=== PATIENT | male | born 1970 | race Caucasian/White ===

== ENCOUNTER 2023-10-08 03:01 | Inpatient (IN) | payer BC, SELFPAY ==
[2023-10-08] VITALS (72 sets, daily range): BP systolic 111–169; BP diastolic 63–108; BMI 31.8; BMI 31.5
--- NOTE | 2023-10-08 02:09 | ED.CVA ---
History of Present Illness
General
Chief Complaint: CVA/TIA Symptoms
Source: patient and ambulance crew
Time Seen by Provider: 10/08/23 01:47
Onset of Stroke Symptoms
Onset of symptoms known: No
Time pt last seen normal is known: Yes
Date last time pt seen normal: 10/07/23
History of Present Illness
History of Present Illness:
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 Patient states he had dinner and went to bed around 1030 feeling
normal. He awoke at 1245 with numbness to the right face and noticed his speech was abnormal. He also noticed that he could not use his right upper extremity. He is right-handed. He is also a diabetic. Patient states he knew he was having a
stroke. He does have a history of bilateral carotid endarterectomy in the past. EMS found him to have flaccid right upper extremity as well as dysarthria. Patient reports no lower extremity symptoms. He is tearful on exam. The patient is
right-handed
Past History
Past History
ED Past Medical History: CVA, HTN, Hypercholesterolemia, NIDDM and Other (Spinocerebellar ataxia type , carotid vascular disease)
Phy Exam
Physical Exam
Physical Exam:
CONSTITUTIONAL Patient alert and oriented to person, place and time. Vital signs reviewed.
HEAD atraumatic, normocephalic.
EYES eyelids normal to inspection, Pupils equally round and reactive to light, Extraocular muscles intact, Conjunctiva normal, Sclera normal.
NECK normal range of motion, Trachea midline, no jugular venous distention.
RESPIRATORY CHEST No respiratory distress noted, Chest expansion equal, Bilateral breath sounds clear.
CARDIOVASCULAR regular rate and rhythm, Heart sounds normal.
UPPER EXTREMITY no cyanosis, no edema.
LOWER EXTREMITY range of motion normal, Motor strength normal, no cyanosis, no edema.
NEURO moderate to severe dysarthria noted, no aphasia, flaccid right upper extremity, cranial nerves intact. No changes to lower extremity strength. Left upper extremity has no ataxia. No noted visual field deficits
SKIN skin warm, dry, and normal in color.
PSYCHIATRIC patient oriented to person place and time, Normal affect.
Scores
NIH Stroke Score
Level of Consciousness: 0 - Alert
LOC Questions: 0-Answers both correctly
LOC Commands: 0-Performs both correctly
Best Horizontal Gaze: 0-Normal
Visual Pandey: 0=Normal, no visual loss
Facial Palsy: 0=Normal, symmetrical
Motor - Right Arm: 3=None vs. gravity
Motor - Left Arm: 0=No drift 10 seconds
Motor - Right Le-No drift 5 seconds
Motor - Left Le-No drift 5 seconds
Limb Ataxia: 0-Absent
Sensation: 1-Mild loss
Best Language: 0-No aphasia
Dysarthria: 2-Severe slurring
Extinction and Inattention: 0-No abnormality
Total Score:: 6
Course
Orders/Labs/Results
Orders:
Orders
10/08/23 01:39
CT Head W/o Cont STROKE ALERT Urgent
Comment:
Reason For Exam: R/O STROKE
10/08/23 01:41
Electrocardiogram (*1) Urgent
Reason for Study: Other
Other Reason for Exam: Possible Stroke
Bedside Glucose- Treatment ONCE
Cardiac Monitoring- Treatment ONCE
EKG- Treatment ONCE
IV Insert/Care/Rem.- Treatment PRN
Vital Signs As Directed
Frequency: Other
Weight As Directed
Frequency: Once
Comment: ZERO STRETCHER SCALE FOR ACCURATE WEIGHT
10/08/23 01:43
CT Head/Neck Ang STROKE ALERT Urgent
Comment:
Reason For Exam: R/O STROKE
10/08/23 02:00
Complete Blood Count/With Diff Urgent
Comprehensive Metabolic Panel Urgent
PTT Urgent
Prothrombin Time Urgent
Troponin I Urgent
10/08/23 02:13
Tenecteplase [Tnkase] 25 mg Syringe [Syringe Non-Pump] 0 ml IV NOW
Provider explained risk/benefits to patient &/or caregiver?: Yes
10/08/23 02:29
Admit/Transfer Patient As Directed
Co-Sign Provider:
Level of Care: Inpatient admission
Assign to:: ICU
Physician / Group: jessie
Diagnosis: acute Lt sided CVA with Rt sided UEx flaccid paralysis
Reason for Hospitalization: acute Lt sided CVA with Rt sided UEx flaccid paralysis s/p TNK
Expected length of stay greater than two midnights?: Yes
ELOS- Estimated Length of Stay in days: 5
I certify the patient meets the requirements for IP care: Yes
10/08/23 02:31
Code Status As Directed
Resuscitation Status: Full Code
10/08/23 03:04
Acetaminophen [Tylenol/Feverall] 650 mg RECTAL Q4HPRN PRN
Acetaminophen [Tylenol] 650 mg PO Q4HPRN PRN
Dextrose 50%-Water [Dextrose 50% Syringe] 12.5 grams IV [id number] PRN
Glucagon [GlucaGen] 1 mg IM PRN PRN
10/08/23 03:04
Case Management Consult ONCE
Case Management Consult: Discharge Planning
Comment: stroke/tia
DIETARY CONSULT Routine
Reason for Consult: stroke/TIA
NEUROLOGY CONSULT Urgent
Consulting Provider: Nina Jensen
Was physician already notified: Yes
Reason for consult: acute Lt sided CVA with Rt sided UEx flaccid paralysis
Extrusion Die Template Maker Urgent
Activity As Directed
Activity Level: With Assistance
Bedside Glucose Monitoring As Directed
Frequency: AC&HS
Additional Instructions:: Change to q6h if pt on TPN, tube feeding or not eating
NIH Stroke Scale As Directed
Directions: Per protocol
Comment: every shift and with any change in condition or mental status
Neurological Checks As Directed
Frequency: q4h
Additional Instructions:: q4h x 24h upon admission to the floor, then qshift & with any change in condition
and mental status
Patient Education As Directed
Type: Stroke education packet
Comment: provide to patient and family
Pneumatic Compression Sleeves As Directed
Type: Knee high
Swallow Screening CVA/TIA ONLY As Directed
Comment: NPO until swallowing screening completed
If patient FAILS swallow screening:: NPO, Speech Therapy consult, Aspiration Precautions
If patient PASSES swallow screening, diet:: Cholesterol Lowering
1800 fátima/ 15 CHO Diabetic
Vital Signs As Directed
Frequency: Per unit guidelines
Ot Eval And Treat Routine
Pt Eval And Treat Routine
Activity Level: As Tolerated
Speech Therapy Eval & Treat Routine
DX Deep Vein Thrombosis Video Routine
10/08/23 04:01
Cardiovascular Evaluation IN AM
Complete Blood Count/No Diff IN AM
Comprehensive Metabolic Panel Routine
Glycohemoglobin (HgbA1c) IN AM
10/08/23 07:30
Insulin Aspart Corrective Low [Novolog Flexpen-Low Resistance] See Protocol SC AC
Abnormal Lab Results
10/08/23 10/08/23 10/08/23
02:00 02:03 03:00
Absolute Monos (auto) 0.7 H 10^3/uL
(0.1-0.6)
Chloride 109 H mmol/L
(98-107)
Carbon Dioxide 20 L mmol/L
(22-30)
BUN 25 H mg/dl
(9-20)
Glucose 134 H mg/dl
(70-99)
Total Protein 6.2 L g/dl
(6.3-8.2)
POC Glucose 135 H mg/dl 148 H mg/dl
(70-99) (70-99)
10/08/23 02:00
10/08/23 02:00
Vital Signs
Initial and Last Documented VS:
Initial Vital Signs
Pulse Resp Pulse Ox
95 34 97
10/08/23 01:58 10/08/23 01:58 10/08/23 01:58
Last Documented Vital Signs
Temp Pulse Resp BP Pulse Ox
98.7 F 64 17 119/70 94
10/08/23 02:05 10/08/23 06:22 10/08/23 06:22 10/08/23 06:22 10/08/23 03:30
MDM/Problems Addressed
MDM/Problems Addressed:
Acute CVA, hypertension
*Radiology
Radiology exam reviewed: preliminary read by ED provider (No obvious intracranial hemorrhage) and radiology read reviewed
*Pulse Oximetry
Patient hypoxic: no
*EKG
Interpreted by ED Provider?: Yes
Interpretation: normal
Rate: normal
Rhythm: sinus
[place]: normal axis
QRS Pattern: normal QRS
Ischemia: no ischemia
*Industrial Gas Fitter Interpretation
Rate: normal
Interpretation: normal
Rhythm: sinus
*Critical Care Note
Total Time (30-74mins, 75-104mins- exclusive of procedures): 40 minutes
Data Reviewed
Source: patient and ambulance crew
Patient Management
Discussion with other providers: Video Producer (Case discussed with neurology)
Escalation/DeEscalation of care consider admission/obs:
52-year-old male presents acutely with stroke. Went to bed at 1030 and woke up around 12:45 AM. Patient with no obvious contraindications to TNK. Patient presents with relatively profound dysarthria as well as flaccid right upper extremity. Case
discussed with neurology recommends TNK. Noncontrast CT negative. Await CTA to look for LVO. Continue to monitor closely. Risks and benefit were discussed in detail with the patient regarding TNK. Patient agrees that he feels that the possible
benefits outweigh the risks and would like to proceed.
ED Attending Note
-
Portions of this chart may have been created with voice recognition software.� Occasional wrong word or��sound alike� substitutions may have occurred due to the inherent limitations of voice recognition software.
Discharge Plan
Departure
Patient Disposition: Admit
Date of Disposition: 10/08/23
Time of Disposition: 02:09
Admit to: ICU
Presentation/result/management discussed w/ accepting MD/DO: Hospitalist
Discharge Problem:
Acute cerebrovascular accident (CVA)
Interventions
Interventions:
*Risk Screen - Suicide Last Done: 10/08/23 02:05
*General Assessment Last Done: 10/08/23 02:05
*Neglect/Abuse Screening Last Done: 10/08/23 02:05
ED- Fall Risk Assessment Last Done: 10/08/23 02:41
*ED COVID-19 Vaccine History Last Done: 10/08/23 02:14
*Nursing Disposition Last Done: 10/08/23 02:41
ED- Pulmonary Assessment Last Done: 10/08/23 02:14
ED- Neurological Assessment Last Done: 10/08/23 02:14
ED- Cardiac Assessment Last Done: 10/08/23 02:14
ED Swallowing Screen Last Done: 10/08/23 02:14
Discharge Date and Time
Discharge Date/Time: 10/08/23 02:42
[2023-10-08 02:10] LABS: Glucose - Point of Care 135 mg/dl (70-99)
[2023-10-08 02:12] LABS: % Basophils 0.7 % (0-2); % Immature Granulocytes 0.2 % (0-0.5); % Lymphocytes 27.8 % (20.5-51.1); % Monocytes 8.3 % (1.7-9.3); Absolute Basophils 0.1 10^3/uL (0-0.2); Absolute Eosinophils 0.3 10^3/uL (0-0.7); Absolute Lymphocytes 2.3 10^3/uL (1.2-3.4); Absolute Monocytes 0.7 10^3/uL (0.1-0.6); Absolute Neutrophils 4.8 10^3/uL (1.4-6.5); Hematocrit 40.3 % (39.0-52.0); Hemoglobin 14.5 g/dL (13.0-18.0); Mean Corpuscular Hgb 30.5 pg (27.0-31.0); Mean Corpuscular Volume 84.7 fL (80.0-94.0); Mean Platelet Volume 10.1 fL (7.4-10.4); Nucleated Red Blood Cells % 0 % (-); Platelet Count 269 10^3/uL (130-400); Red Blood Cell Count 4.76 10^6/uL (4.70-6.10); Red Cell Dist. Width 13.2 % (11.5-14.5); White Blood Cell Count 8.2 10^3/uL (4.8-10.8)
[2023-10-08 02:18] LABS: INR 1.11; PT 14.2 Sec (11.4-14.6)
[2023-10-08 02:19] LABS: APTT 30.6 Sec (23.4-35.0)
[2023-10-08] MEDS: TNKASE 5 MG IV (02:21)
[2023-10-08 02:29] LABS: ALT (SGPT) 37 U/L (0-50); AST (SGOT) 29 U/L (17-59); Albumin 3.8 g/dl (3.5-5.0); Alkaline Phosphatase 59 U/L (38-126); Blood Urea Nitrogen 25 mg/dl (9-20); Calcium 9.5 mg/dl (8.4-10.2); Carbon Dioxide 20 mmol/L (22-30); Chloride 109 mmol/L (98-107); Estimated Creatinine Clearance 93 ml/min; Glucose 134 mg/dl (70-99); Potassium 3.9 mmol/L (3.5-5.1); Sodium 137 mmol/L (135-145); Total Bilirubin 0.5 mg/dl (0.2-1.3); Total Protein 6.2 g/dl (6.3-8.2); eGFR > 60.00
[2023-10-08 02:32] LABS: Troponin I 0.019 ng/ml
--- NOTE | 2023-10-08 02:48 | HPS.HSE ---
Family Physician
-
Family Physician: INTERVIEWE UNKNOWN - PT NOT
Chief Complaint
-
stroke alert
History of Present Illness
HPI
52 R handed Diabetic M , [facility] EMS , HX CVA, FENG, bilateral carotid endarterectomy , HX spinocerebellar ataxia type seen at ER s/p TNK and evaalaution of acute CVA
- went to bed at 1030pm feeling normal
- awoke at 1245 with numbness to the right face and noticed his speech was slurred
- noted unable to move his Rt UEx
EMS:
EMS found him to have flaccid right upper extremity as well as dysarthria.
Patient reports no lower extremity symptoms.
Medical History
Past Medical History
Past Medical History: Reports Other
Additional Past Medical History:
Spinocerebellar ataxia type
stroke
carotid vascular disease
CVA
HTN
Hypercholesterolemia
Past Surgical History: Reports Other (bilateral carotid endarterectomy)
Social History
Tobacco: Non-smoker
Alcohol: None
Drug: None
Personal:
Living: With Family
Family History
Family History: Not pertinent
Allergies / Home Medications
Allergies reflects when Allergies were last updated in [facility].
Home Medications with original date entered in [facility]
Allergy/Medication List:
Allergies
Allergy/AdvReac Type Severity Reaction Status Date / Time
latex Allergy Unknown Verified 10/08/23 02:11
Home Medications
Fish Oil 10/08/23
Lantus Solostar U-100 Insulin 30 unit SC DAILY 10/08/23
Mounjaro 10/08/23
aspirin 10/08/23
diltiazem HCl 10/08/23
labetalol 10/08/23
metformin 10/08/23
montelukast 10/08/23
rosuvastatin 10/08/23
Review of Systems
-
Constitutional: Reports No Symptoms
EENT: Reports No Symptoms
Respiratory: Reports No Symptoms
Cardiac: Reports No Symptoms
Abdomen/GI: Reports No Symptoms
: Reports No Symptoms
Musculoskeletal: Reports No Symptoms
Skin: Reports No Symptoms
Neurological: Reports See HPI and Weakness (Rt UEx weakness )
Endocrine: Reports No Symptoms
Hematologic/Lymphatic: Reports No Symptoms
Psych: Reports No Symptoms
Physical Exam
Vital Signs
Vital Signs
Temp Pulse Resp BP Pulse Ox
98.7 F 82 17 159/84 94
10/08/23 02:05 10/08/23 02:35 10/08/23 02:35 10/08/23 02:35 10/08/23 02:35
Physical Exam
General: Well Developed and Conversant (slurred speech , not dysphasic )
HEENT: NormoCephalic, Anicteric, Moist mucous membranes and Atraumatic
Respiratory: Clear
Cardiac: S1/S2 and Regular Rhythm
Breast: Deferred by me
GI: Soft, Non Tender, Non Distended and Normal Bowel Sounds
Rectal: Deferred by Provider
Genito-urinary: Deferred by me
Musculoskeletal: No Edema
Skin: Warm and Dry
Neuro: Awake, Alert, AO x 3, Nonfocal/grossly intact (see NIHSS ) and Other
Psych: Calm
Laboratory Results
-
10/08/23 02:00
10/08/23 02:00
Laboratory Results
PT 14.2 Sec (11.4-14.6) 10/08/23 02:00
INR 1.11 10/08/23 02:00
APTT 30.6 Sec (23.4-35.0) 10/08/23 02:00
Total Bilirubin 0.5 mg/dl (0.2-1.3) 10/08/23 02:00
AST 29 U/L (17-59) 10/08/23 02:00
ALT 37 U/L (0-50) 10/08/23 02:00
Alkaline Phosphatase 59 U/L (38-126) 10/08/23 02:00
Troponin I 0.019 ng/ml 10/08/23 02:00
Data Reviewed
-
CT Scan: Report Reviewed by me
Medical Tests (Nuc Med, Echo, EKG etc): Report Reviewed by me
Lab Data: Labs Reviewed by me
Old Records: Reviewed
Impression/Plan
-
Reviewed VS: BP 170/90 HR 80
PE
NIH Stroke Score
Level of Consciousness: 0 - Alert
LOC Questions: 0-Answers both correctly
LOC Commands: 0-Performs both correctly
Best Horizontal Gaze: 0-Normal
Visual Pandey: 0=Normal, no visual loss
Facial Palsy: 0=Normal, symmetrical
Motor - Right Arm: 3=None vs. gravity
Motor - Left Arm: 0=No drift 10 seconds
Motor - Right Le-No drift 5 seconds
Motor - Left Le-No drift 5 seconds
Limb Ataxia: 0-Absent
Sensation: 1-Mild loss
Best Language: 0-No aphasia
Dysarthria: 2-Severe slurring
Extinction and Inattention: 0-No abnormality
Total Score:: 6
Data
Unremarkable CBC
Pending CMP
HCT
No acute process
H & N CTA: per ER att, no LVO
EKG
NORMAL SINUS RHYTHM
NORMAL ECG
NO PREVIOUS ECGS AVAILABLE
NO PRIOR DH and hospitalist admission:
ASSESSMENT & PLAN
Pending Rx reconciliation
Acute Lt MCA region CVA with dysarthria, Rt UEx flaccid paralysis, Rt face parasthesis
TNK candidate without contraindication
- HX CVA
- HX CVA, FENG, bilateral carotid endarterectomy
- NEG Noncontrast HCT
- Prelim NEG H & N CTA for for LVO
- Case ER attd discussed with neurology recommends TNK.
- ICU admission s/p TNK
- No APL for next 24 hrs
- Neuro consulted
NIDDM
- NPO till speech eval
- add ISS low
Essential HTN
- Goal of permissive HTN up to 220/ 115
Hypercholesterolemia
- cont Rosuvastatin
DVT Px: SCD
Code: full code
ICU
Total Critical Care Time_55____ minutes.
I was immediately available to the patient and staff. I personally examined, reviewed labs, diagnostic images/reports, interpretations, treatment plans, discussed patient care with other providers and family or caregivers (if patient is unable to
make decisions), entered orders as appropriate and documented the medical record.
[2023-10-08 03:11] LABS: Glucose - Point of Care 148 mg/dl (70-99)
[2023-10-08 04:15] LABS: Hematocrit 42.2 % (39.0-52.0); Hemoglobin 14.8 g/dL (13.0-18.0); Mean Corp Hgb Conc. 35.1 g/dL (33.0-37.0); Mean Corpuscular Hgb 30.9 pg (27.0-31.0); Mean Corpuscular Volume 88.1 fL (80.0-94.0); Mean Platelet Volume 10.2 fL (7.4-10.4); Platelet Count 253 10^3/uL (130-400); Red Blood Cell Count 4.79 10^6/uL (4.70-6.10); Red Cell Dist. Width 13.1 % (11.5-14.5); White Blood Cell Count 9.4 10^3/uL (4.8-10.8)
[2023-10-08 04:26] LABS: ALT (SGPT) 41 U/L (0-50); AST (SGOT) 34 U/L (17-59); Albumin 4.2 g/dl (3.5-5.0); Alkaline Phosphatase 59 U/L (38-126); Blood Urea Nitrogen 23 mg/dl (9-20); Calcium 9.7 mg/dl (8.4-10.2); Carbon Dioxide 22 mmol/L (22-30); Chloride 106 mmol/L (98-107); Estimated Creatinine Clearance 84 ml/min; Glucose 136 mg/dl (70-99); HDL Cholesterol 36 mg/dl; INR 1.06; LDL Cholesterol, Calculated 109 mg/dl; Magnesium 1.8 mg/dl (1.6-2.3); PT 13.6 Sec (11.4-14.6); Phosphorus 3.4 mg/dl (2.5-4.5); Potassium 4.4 mmol/L (3.5-5.1); Sodium 138 mmol/L (135-145); Total Bilirubin 0.7 mg/dl (0.2-1.3); Total Cholesterol 201 mg/dl (50-199); Total Protein 6.6 g/dl (6.3-8.2); Triglyceride 281 mg/dl (10-149); Very Low Density Lipoprotein 56 mg/dl (0-30); eGFR > 60.00
[2023-10-08 04:27] LABS: APTT 30.6 Sec (23.4-35.0)
--- NOTE | 2023-10-08 04:46 | PTCARENOTE ---
Received patient to room 3368 from ED nurse via a stretcher. The patient transferred himself from the stretcher to the ICU bed. Patient's AAox4 and able to make his needs known. Dual RN NIH assessment with ED nurse completed. Pt's NIH of 3- right
arm drift, limb ataxia, and mild dysarthria. Plan of care for the remainder of the shift reviewed with the patient. Pt's sinus rhythm on the monitor. Afebrile. Palpable pulses. Clear breath sounds. +BS. Abdomen is round and obese. CHG bath provided.
Pt passed swallow eval. Stroke package and teaching provided. Labs drawn and sent. Bed in the lowest position. Call smith and personal belongings are within reach.
--- NOTE | 2023-10-08 06:10 | PTCARENOTE ---
Patient reassessed. Remains AAOx4 and able to make his needs known. MAEx4. ataxia to RUE. Mild dysarthria. IV sites remain patent. VSS.
--- NOTE | 2023-10-08 07:23 | CON.INTV ---
Consultation
Consultation Request
Date/Time Consultation Requested: 10/08/23
Date/Time Consultation Performed: 10/08/23
Performing Provider: Jose Luis
Reason for Consultation: ICU
Medical History
-
History of Present Illness:
Patient is a 52-year-old male with previous history of spinal cerebral ataxia, CVA, hypertension presenting to ER with acute onset numbness to the right face and slurred speech. He was then unable to move his right upper extremity. EMS called
and on arrival found to have flaccid paralysis of the right upper extremity as well as dysarthria. Initial NIH score 6, noncontrast CT negative. Received TNK and admitted to ICU for closer monitoring.
Past Medical History
Past Medical History: Other (see list below)
Social History
Tobacco: Non-smoker
Alcohol: None
Drug: None
Family History
Family History: Reviewed & Not Pertinent
Allergies / Home Medications
Allergies
Allergy/AdvReac Type Severity Reaction Status Date / Time
latex Allergy Unknown Verified 10/08/23 02:11
Home Medications
�Medication �Instructions �Recorded �Confirmed �Last Taken �Type
Fish Oil 10/08/23 Unknown History
Lantus Solostar U-100 Insulin 30 unit SC DAILY 10/08/23 10/08/23 Unknown History
Mounjaro 10/08/23 Unknown History
aspirin 10/08/23 Unknown History
diltiazem HCl 10/08/23 Unknown History
labetalol 10/08/23 Unknown History
metformin 10/08/23 Unknown History
montelukast 10/08/23 Unknown History
rosuvastatin 10/08/23 Unknown History
Review of Systems
-
History Source: Patient
All other systems: Negative unless noted
Vitals / Labs / Diagnostic Testing
Vital Signs
Temp Pulse Resp BP Pulse Ox
98.6 F 70 17 112/77 94
10/08/23 07:20 10/08/23 06:52 10/08/23 06:52 10/08/23 06:52 10/08/23 03:30
Lab Data
10/08/23 04:01
10/08/23 04:01
Laboratory Results
10/08/23 10/08/23
02:00 04:01
PT 14.2 13.6
INR 1.11 1.06
APTT 30.6 30.6
Diagnostic Testing:
Physical Exam
-
HEENT: Normocephalic, Anicteric and Moist Mucous Membranes
Cardiovascular: S1/S2 and Regular Rhythm
Respiratory: Clear and Non-Labored Respirations
GI: Soft, Non Distended and Non Tender
Neurology: Awake, Alert, Oriented, AO x 3 and No Motor Deficits
Skin: Warm, Dry and Good Color
General: Comfortable and Other (NAD)
Assessment
-
Patient is a 52-year-old male with previous history of spinal cerebral ataxia, CVA, hypertension presenting to ER with acute onset numbness to the right face and slurred speech. He was then unable to move his right upper extremity. EMS called
and on arrival found to have flaccid paralysis of the right upper extremity as well as dysarthria. Initial NIH score 6, received TNK and admitted to ICU for closer monitoring.
Acute CVA s/p TNK 10/07/23
Slurred speech, dysarthria
RUE weakness
Conditions present DRUG REGULATORY AFFAIRS SPECIALIST
Spinocerebellar ataxia type
Carotid vascular disease s/p bilateral carotid endarterectomy
CVA
HTN
Hypercholesterolemia
NIDDM
Obesity, BMI 31.5
Plan
S/p TNK for CVA
Observe overnight following administration, careful watch for signs of bleeding
Follow CBC, neurovascular checks
Repeat MRI today
Prior cardiac history includes--HTN, HLD
Resume home meds
Monitor on telemetry
No prior h/o lung disease, nonsmoker
Risk factors are noted for CARIN, recommend outpatient sleep study
Aspiration precautions
CXR reviewed-no acute process
Restart diet per protocol
Speech therapy
GI ppx if indicated
Creat at baseline, follow UO
Replete electrolytes as needed
I/Os
No signs/symptoms suspicious for infectious etiology at this time.
Will observe off antibiotics for now.
DVT ppx held, SCDs
History of NIDDM
Hba1c 7.0
Resume home meds, but may need adjustments/education
Diagnostic Data
Chest X-Ray: 10/08/23- no acute findings (on my review)
CT Scan: Noncontrast CT negative (await final read)-no acute intracranial findings, no hemorrhage or mass effect, no evidence for an acute large vessel territory ischemic infarct
H&N final read pending--dominant left vertebral artery patent without evidence for stenosis or dissection, diminutive right vertebral artery irregular morphology, marked narrowing and irregularity in the distal V2 segment, occlusion of the V3 and
proximal intradural segments V4, appearance suggestive of an age-indeterminate vertebral artery dissection. Bilateral CCAs and ICAs are patent without evidence for stenosis or dissection. Previous bilateral carotid endarterectomies are noted.
Apparent focal hypodensity in the left frontal lobe with loss of elizalde-white matter differentiation which may signify small acute infarct
Echo:
PFT's:
Reports and relevant images were personally reviewed.
-----
Critical Care time 51 mins -- The patient is admitted for acute critical illness for the treatment of vital organ failure and/or prevention of further life-threatening conditions. Total care includes time spent in review of history, physical exam,
medications, hemodynamic/ventilator parameters, laboratory data, imaging and discussion with house staff, pharmacy, respiratory therapy, jewelry casting model maker, and nursing.
--- NOTE | 2023-10-08 08:30 | W.PN.HOSP.TC ---
Today's Communication/Plan
-
PT/OT/speech
await neuro
await imaging studies
Assessment / Plan
Assessment / Plan
pt is a 52 year old male
Acute left MCA region CVA with dysarthria, Right upper extremity flaccid paralysis, right face paraesthesia (hx of CVA, CEA) --s/p TNK with improvement (can talk and move right arm)--head CT neg--await neuro, PT/OT/speech/imaging studies--advance
diet as directed--
type 2 DM--cont meds once reconciled-- add ISS low
Essential HTN-- Goal of permissive HTN up to 220/ 115
Hypercholesterolemia- cont Rosuvastatin
DVT proph
code status --- FULL CODE
Anticipated Discharge: 24 - 48 hours
Subjective/Interval History
-
Date of Service: October 08, 2023
pt still feels slurred speech and right arm/hand feels 'asleep'
Objective Data
-
Labs:
Laboratory Results
10/08/23 10/08/23
02:00 04:01
WBC 8.2 9.4
Hgb 14.5 14.8
Hct 40.3 42.2
Plt Count 269 253
PT 14.2 13.6
INR 1.11 1.06
APTT 30.6 30.6
Sodium 137 138
Potassium 3.9 4.4
Chloride 109 H 106
Carbon Dioxide 20 L 22
BUN 25 H 23 H
Creatinine 1.1 1.2
Glucose 134 H 136 H
Calcium 9.5 9.7
Total Bilirubin 0.5 0.7
AST 29 34
ALT 37 41
Alkaline Phosphatase 59 59
Vital Signs:
max temp for 24 hours
10/08/23
02:05
Temp 98.7 F
Vital Signs
Temp Pulse Resp BP Pulse Ox
98.6 F 70 9 117/73 97
10/08/23 07:20 10/08/23 08:15 10/08/23 08:15 10/08/23 08:09 10/08/23 08:15
Review of Systems
-
All other systems: Reviewed and negative
Physical Exam
-
General: Well Developed, Well Nourished and No Apparent Distress
HEENT: Normocephalic and Atraumatic
Respiratory: Clear to Auscultation; Negative Wheezes, Rales or Rhonchi
Cardiac: Regular Rhythm and S1/S2; Negative Murmur
GI: Soft, Nontender, Nondistended and Normal Bowel Sounds
Musculoskeletal: No Clubbing, No Cyanosis and No Edema
Neuro: Awake and Alert
Psych: Calm
--- NOTE | 2023-10-08 09:12 | PTCARENOTE ---
Follow up assessment, vital signs ongoing and as documented. Hospitalist and warehouse record clerk at bedside with patient. NIH presently 3 but continues to improve. Speech slow as noted. Improved overall movement and sensation in right arm and hands. Now
just feels 'pins and needles' in hand or generalized weakness in grasp. Will follow up with speech team presently working with him at bedside. Will update diet when appropriate. Update medication/home list with pharmacy. Continue ongoing rounds and
follow up trends as per unit based protocol. Stroke packet with patient at this time.
--- NOTE | 2023-10-08 09:36 | CON.NEURO4 ---
Consultation - Neurology 4
-
CONSULTING PHYSICIAN: Mikey
REFERRING PHYSICIAN: ER
DICTATED BY: Mikey
DATE/TIME OF REQUEST: 10/08/23 at 130
DATE/TIME OF CONSULTATION: 10/08/23 at 930
Reason for Consultation: stroke alert
History of Present Illness:
52 year-old male with a history of SCA, strokes years ago (location unknown) treated initially in [place], then seen for this at [place], htn, HLD and DM who woke up at 1245am this morning with complete inability to move his R arm as well as
dysarthria. Had gone to bed in normal state of health at 10:30pm. Was able to call his sister and get to the hospital quickly; was a candidate for TNK and received it with significant improvement in all symptoms. Reports ongoing mild dysarthria,
some mild numbness in his R hand, and diminished wallpaper consultant strength/dexterity in his R hand. Remainder of RUE weakness now resolved s/p TNK. Takes ASA 81mg and Crestor 10mg as an OP. He is visiting from out of town for his brother in law's .
Past Medical History:
Spinocerebellar ataxia type
carotid vascular disease
CVA
HTN
Hypercholesterolemia
DM
Past Surgical History:bilateral carotid endarterectomy
Social History
Tobacco: Non-smoker
Alcohol: None
Drug: None
Personal:
Living: With Family
Family History: dad had RI and blood clots at a young age--does not know specifics
Allergies
latex Allergy (Verified 10/08/23 02:11)
Unknown
Home Medications
�Medication �Instructions �Recorded
Fish Oil 10/08/23
aspirin 81 mg tablet,delayed 81 mg PO DAILY Blood Clot 10/08/23
release Prevention/Tx
diltiazem HCl 180 mg 180 mg PO DAILY Blood Pressure 10/08/23
capsule,extended release 24 hr
fenofibrate 160 mg tablet 160 mg PO DAILY High Cholesterol 10/08/23
icosapent ethyl 1 gram capsule 2 g PO BID High Cholesterol 10/08/23
insulin glargine 100 unit/mL (3 30 unit SC HS Diabetes 10/08/23
mL) subcutaneous pen (Lantus
Solostar U-100 Insulin)
labetalol 200 mg tablet 200 mg PO BID Blood Pressure 10/08/23
metformin 500 mg tablet 500 mg PO BID High Cholesterol 10/08/23
montelukast 10 mg tablet 10 mg PO DAILY 10/08/23
rosuvastatin 10 mg tablet 10 mg PO DAILY High Cholesterol 10/08/23
tirzepatide 12.5 mg/0.5 mL 12.5 mg SC WEEKLY Diabetes 10/08/23
subcutaneous pen injector
(Deedee)
Review of Symptoms:
Patient denies any fever, headache, chest pain, shortness of breath, GI or symptoms.
�Per the HPI.�All systems are reviewed negative except above.
Vital Signs
Temp Pulse Resp BP Pulse Ox
98.6 F 73 20 126/70 97
10/08/23 07:20 10/08/23 08:52 10/08/23 08:52 10/08/23 08:52 10/08/23 08:15
Lab Results
10/08/23 04:01
10/08/23 04:01
PT 13.6 Sec (11.4-14.6) 10/08/23 04:01
INR 1.06 10/08/23 04:01
APTT 30.6 Sec (23.4-35.0) 10/08/23 04:01
Sodium 138 mmol/L (135-145) 10/08/23 04:01
Potassium 4.4 mmol/L (3.5-5.1) 10/08/23 04:01
BUN 23 mg/dl (9-20) H 10/08/23 04:01
Glucose 136 mg/dl (70-99) H 10/08/23 04:01
Calcium 9.7 mg/dl (8.4-10.2) 10/08/23 04:01
Phosphorus 3.4 mg/dl (2.5-4.5) 10/08/23 04:01
LDL Cholesterol, Calc 109 mg/dl 10/08/23 04:01
Physical Exam:
The patient is afebrile, heart sounds S1 and S2 are regular, and chest is clear to auscultation bilaterally.
NIH Stroke Scale:
I performed the NIH stroke scale on the patient on 10/07/23 at 945. The patient scored 2 points on the NIH stroke scale assessment, which were assigned as follows: 1 for diminished sensation, 1 for very mild dysarthria
Neurologic Examination:
The patient is awake, alert and oriented x 3. He is able to follow commands and answer questions appropriately. There is no aphasia; reports some mild dysarthria compared to his baseline speech. On cranial nerve assessment, pupils are 3 mm
bilateral, round and reactive to light and accommodation. Visual jacobson are full. Extraocular movements are intact. Facial sensations are intact and bilaterally symmetrical, there is no facial asymmetry. Hearing is intact bilaterally to normal
conversation volume. Tongue palate and uvula are midline. Sternocleidomastoid strengths are full bilaterally. Motor strengths are 5/5 bilateral upper and lower extremities on medical research [place] scale except for R hand wallpaper consultant 5-. There is no
drift or involuntary movement noted. Deep tendon reflexes are 2+ bilateral upper and lower extremities and Babinski is absent bilaterally. Diminished sensation to LT/temp in the R hand compared to the L. There was no extinction noted on double
simultaneous stimulation. Coordination is intact by finger to nose bilaterally.
Neuro Imaging:
CTA results:
1. No CTA evidence for high-grade stenosis or occlusion of the [place] or bilateral carotid arterial systems.
2. 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 Findings are considered suspicious for an age-indeterminate vertebral artery dissection.
HCT:
Small focus of hypoattenuation in the left frontal lobe could reflect a developing infarct. An MRI would be more sensitive for the evaluation of acute ischemia.
Impression:
MALVIN ANN is a 52 year old M who has presented to the hospital with dysarthria and severe RUE weakness; HCT concerning for a L frontal lobe infarct developing; was within the window and received TNK. He has had significant improvement in all
symptoms.
Patient has the following risk factors for their symptoms:
carotid vascular disease
CVA
HTN
Hypercholesterolemia
IV Tenecteplase/IAT candidacy: received TNK; CTA results reviewed--age indeterminate occlusion/possible dissection although does not correlate with these symptoms
Recommendations:
� administer IV Tenecteplase (TNK) per protocol urgently while keeping patient's blood pressure to a goal of systolic less than 185 and diastolic less than 110 mmHg during infusion of TNK
� place the patient in medical ICU
� goal blood pressure over the next 24 hours would be less than 180/105 mmHg
� check MRI of the brain within 22-32 hours of TNK without contrast for localization of the stroke
CTA reviewed-Right vertebral artery occlusion of the V3 and proximal V4 segments, and narrowing and irregularity of the distal V2 segment. Findings are considered suspicious for an age-indeterminate vertebral
artery dissection. Very likely chronic, does not correlate with current stroke; does report that he had a stroke years ago
� hold all antiplatelets, OAC meds, DOAC meds, heparinoids for next 24 hours
� LDL 109; HgbA1C is 7.0
� Maxed out Crestor dosing; was on 10mg MAINTENANCE CONTROLLER
� goal blood glucose levels for patient would be less than 180 mg/dL
� Speech, PT, OT evaluations needed
� Physiatry consultation warranted
� DVT prophylaxis with sequential compression devices over next 24 hours, can be started on Enoxaparin subcutaneous for DVT prophylaxis beginning 24 hours after TNK provision.
� medical educational materials will be provided
� check an echocardiogram--can be done as an outpatient if patient prefers; his brother in law's is tomorrow and he may want to leave after MRI is completed
Total Critical Care Time= 70 minutes.
The neurological system is affected and the action required by me to prevent further deterioration or potential was control over the item listed first in the Impressions and Recommendations section of this note.
I was present and personally examined the patient. I discussed patient care with other professional health care providers.
We will follow.
Discussed patient care with: patient, ED
--- NOTE | 2023-10-08 10:47 | PTOTSP ---
SPEECH THERAPY SWALLOW EVALUATION:
Patient exhibits grossly functional oropharyngeal swallow at this time. No history of dysphagia/pneumonia noted. Patient remains at risk for aspiration given suspected acute CVA and right sided lingual/labial weakness. No signs concerning for
aspiration at this time. Recommend Regular texture solids, thin liquids. Medications whole with liquid as best tolerated. General aspiration precautions. Speech therapy to follow briefly, assess diet tolerance and modify as appropriate, provide
education regarding aspiration risks/precautions, and complete full speech/language/cognitive communication to further assess skills given acute CVA.
RECOMMEND:
1) Regular texture diet, thin liquids
2) Medications whole with liquid as best tolerated
3) General aspiration precautions
4) ST to follow briefly for swallow, complete full speech/language/cognitive communication evaluation
--- NOTE | 2023-10-08 11:25 | PTCARENOTE ---
Update with neurology. At bedside with patient. MRI and 2D echo planned for dayshift. Follow up time for scan tbd. Continue with NIH and icu procedures and protocols. Continue with teaching, emotional support and post stroke cares. Hourly rounds,
frequent patient safety checks, call smith instruct/demo and in use as needed.
[2023-10-08 11:36] LABS: Glucose - Point of Care 137 mg/dl (70-99)
--- NOTE | 2023-10-08 13:04 | PTCARENOTE ---
patient tolerated 100% of lunch as ordered and supervised. Continue teaching and supportive cares. Assessment continues to improve. Noted more fluent speech and improved overall movement and ROM with right arm. Still chief complaint of 'pins and
needles' in right hand with some weakness. MRI on phone for clearance and update. Continue to update assistant dean of students thru shift. Family updated at bedside.
[2023-10-08 16:56] LABS: Glucose - Point of Care 120 mg/dl (70-99)
--- NOTE | 2023-10-08 18:16 | PTCARENOTE ---
Updated patient and family plan of 0770am MRI. Continue supportive cares and teaching. Assessment has improved throughout day. Right arm and hand strength has improved. Hand sensation still unchanged but overall improvement in dexterity and
coordination (able to text, eat and pick different size objects up) Speech overall slow but more fluent and clear. Tolerates po intake 100% of lunch and dinner taken in. Voiding clear dark yellow urine. Am labs orders follow up NIH and assessment
trends.
[2023-10-08] MEDS: TYLENOL 650 MG PO (19:57)
[2023-10-08] MEDS: CRESTOR 40 MG PO (21:33)
[2023-10-08 21:38] LABS: Glucose - Point of Care 104 mg/dl (70-99)
[2023-10-09] VITALS (29 sets, daily range): BP systolic 117–178; BP diastolic 61–103; PULSE 79–85; BMI 31.1
--- NOTE | 2023-10-09 00:34 | PTCARENOTE ---
Addendum entered by Lucas Saldivar RN 10/09/23 00:52:
right side of pt face around the cheek feels asleep not the left
Original Note:
systems reviewed, pt denies any motor abnormalities, pt says left side of face around the cheek feels asleep but no other sensory deficits, pt able to make needs known, pt complained of headache but pain relieved with tylenol per order, call smith
within reach, otherwise refer to documentation
[2023-10-09 04:27] LABS: Hematocrit 44.1 % (39.0-52.0); Hemoglobin 15.3 g/dL (13.0-18.0); Mean Corp Hgb Conc. 34.7 g/dL (33.0-37.0); Mean Corpuscular Hgb 30.4 pg (27.0-31.0); Mean Corpuscular Volume 87.5 fL (80.0-94.0); Mean Platelet Volume 10.1 fL (7.4-10.4); Platelet Count 247 10^3/uL (130-400); Red Blood Cell Count 5.04 10^6/uL (4.70-6.10); Red Cell Dist. Width 13.5 % (11.5-14.5); White Blood Cell Count 7.1 10^3/uL (4.8-10.8)
[2023-10-09 04:47] LABS: ALT (SGPT) 42 U/L (0-50); AST (SGOT) 33 U/L (17-59); Albumin 4.1 g/dl (3.5-5.0); Alkaline Phosphatase 65 U/L (38-126); Blood Urea Nitrogen 20 mg/dl (9-20); Calcium 9.7 mg/dl (8.4-10.2); Carbon Dioxide 26 mmol/L (22-30); Chloride 107 mmol/L (98-107); Estimated Creatinine Clearance 92 ml/min; Glucose 121 mg/dl (70-99); Potassium 4.5 mmol/L (3.5-5.1); Sodium 138 mmol/L (135-145); Total Bilirubin 0.5 mg/dl (0.2-1.3); Total Protein 6.5 g/dl (6.3-8.2); eGFR > 60.00
--- NOTE | 2023-10-09 07:21 | W.PN.INTV ---
Today's Communication / Plan
Recommendations
Doing well post TNK, MRI stable
Tolerating meals, ambulating in room
Transfer to tele today, we will sign off upon transfer
Discharge planning per team
Assessment
-
Patient is a 52-year-old male with previous history of spinal cerebral ataxia, CVA, hypertension presenting to ER with acute onset numbness to the right face and slurred speech. He was then unable to move his right upper extremity. EMS called
and on arrival found to have flaccid paralysis of the right upper extremity as well as dysarthria. Initial NIH score 6, received TNK and admitted to ICU for closer monitoring.
Acute CVA s/p TNK 10/07/23
Slurred speech, dysarthria
RUE weakness
Conditions present TMD TEACHER ASSISTANT
Spinocerebellar ataxia type
Carotid vascular disease s/p bilateral carotid endarterectomy
CVA
HTN
Hypercholesterolemia
NIDDM
Obesity, BMI 31.5
CARIN on CPAP
Plan
S/p TNK for CVA
Observe overnight following administration, careful watch for signs of bleeding
Follow CBC, neurovascular checks
Repeat MRI today showing small CVA
Prior cardiac history includes--HTN, HLD
Resume home meds
Monitor on telemetry
No prior h/o lung disease, nonsmoker
CARIN history, he is compliant with CPAP
Aspiration precautions
CXR reviewed-no acute process
Restart diet per protocol
Speech therapy
GI ppx if indicated
Creat at baseline, follow UO
Replete electrolytes as needed
I/Os
No signs/symptoms suspicious for infectious etiology at this time.
Will observe off antibiotics for now.
DVT ppx held, SCDs
History of NIDDM
Hba1c 7.0
Resume home meds, but may need adjustments/education
Diagnostic Data
Chest X-Ray: 10/08/23- no acute findings (on my review)
CT Scan: Noncontrast CT negative (await final read)-no acute intracranial findings, no hemorrhage or mass effect, no evidence for an acute large vessel territory ischemic infarct
H&N final read pending--dominant left vertebral artery patent without evidence for stenosis or dissection, diminutive right vertebral artery irregular morphology, marked narrowing and irregularity in the distal V2 segment, occlusion of the V3 and
proximal intradural segments V4, appearance suggestive of an age-indeterminate vertebral artery dissection. Bilateral CCAs and ICAs are patent without evidence for stenosis or dissection. Previous bilateral carotid endarterectomies are noted.
Apparent focal hypodensity in the left frontal lobe with loss of elizalde-white matter differentiation which may signify small acute infarct
Echo:
PFT's:
Reports and relevant images were personally reviewed.
-----
Critical Care time 31 mins -- The patient is admitted for acute critical illness for the treatment of vital organ failure and/or prevention of further life-threatening conditions. Total care includes time spent in review of history, physical exam,
medications, hemodynamic/ventilator parameters, laboratory data, imaging and discussion with house staff, pharmacy, respiratory therapy, brand ambassadors promotional sales, and nursing.
Subjective Dataa
Subjective Data
Date of Service:
Date of Service: October 09, 2023
Chief Complaint: Body Care Manager Follow Up
Subjective:
No events ON, no complaints
MRI reviewed, small CVA noted
Sitting in chair
Objective Data
Data Reviewed
Vital Signs / I&O / Oxygen:
Vital Signs
Temp Pulse Resp BP Pulse Ox
97.2 F 75 20 140/81 95
10/09/23 01:38 10/09/23 03:45 10/09/23 03:45 10/09/23 03:00 10/08/23 21:00
Intake and Output
10/08/23 10/09/23 10/10/23
06:59 06:59 06:59
Intake Total 1200 / 1200
Output Total 1400 / 1400
Balance -200 / -200
SaO2 95
Nasal Cannula flow liters per 94
minute
Physical Exam
General: Comfortable and Other (NAD)
HEENT: Normocephalic, Anicteric and Moist Mucous Membranes
Cardiovascular: S1-S2 and Regular Rhythm
Respiratory: Clear and Non-Labored Respirations
GI: Soft, Non Distended and Non Tender
Neurology: Awake, Alert, Oriented, AO x 3 and No Motor Deficits
Skin: Warm, Dry and Good Color
Labs/Micro/Reports
Lab Data
10/09/23 04:02
10/09/23 04:02
--- NOTE | 2023-10-09 08:11 | W.PN.HOSP.TC ---
Today's Communication/Plan
-
PT/OT
await MRI
will eventually need ECHO
can transfer out of ICU if no d/c today
Assessment / Plan
Assessment / Plan
pt is a 52 year old male
Acute left MCA region CVA with dysarthria, Right upper extremity flaccid paralysis, right face paraesthesia (hx of CVA, CEA) --s/p TNK with improvement --head CT neg--apprec neuro, await PT/OT--apprec speech--advance diet as directed--brain MRI
pending--LDL 109 and statin started
type 2 DM--cont meds once reconciled-- add ISS low
Essential HTN-- Goal of permissive HTN initially--now BP control
Hypercholesterolemia- cont Rosuvastatin
DVT proph
code status --- FULL CODE
Anticipated Discharge: Within 24 hours
Subjective/Interval History
-
Date of Service: October 09, 2023
pt has some mild residual 'pins and needles' right hand/fingers--fine motor skills improving
Objective Data
-
Labs:
Laboratory Results
10/09/23
04:02
WBC 7.1
Hgb 15.3
Hct 44.1
Plt Count 247
Sodium 138
Potassium 4.5
Chloride 107
Carbon Dioxide 26
BUN 20
Creatinine 1.1
Glucose 121 H
Calcium 9.7
Total Bilirubin 0.5
AST 33
ALT 42
Alkaline Phosphatase 65
Vital Signs:
max temp for 24 hours
10/08/23
11:54
Temp 98 F
Vital Signs
Temp Pulse Resp BP Pulse Ox
97.2 F 75 20 140/81 97
10/09/23 01:38 10/09/23 03:45 10/09/23 03:45 10/09/23 03:00 10/09/23 08:08
I&O
10/08/23 10/09/23 10/10/23
06:59 06:59 06:59
Intake Total 1200 / 1200 320 / 320
Output Total 1400 / 1400 600 / 600
Balance -200 / -200 -280 / -280
Review of Systems
-
All other systems: Reviewed and negative
Physical Exam
-
General: Well Developed, Well Nourished and No Apparent Distress
HEENT: Normocephalic and Atraumatic
Respiratory: Clear to Auscultation; Negative Wheezes or Rhonchi
Cardiac: Regular Rhythm and S1/S2; Negative Murmur
GI: Soft, Nontender, Nondistended and Normal Bowel Sounds
Musculoskeletal: No Clubbing, No Cyanosis and No Edema
Skin: Warm
Neuro: Awake, Alert and Nonfocal/Grossly Intact
--- NOTE | 2023-10-09 08:32 | PTCARENOTE ---
Update with hospitalist team this am. Follow up MRI completed. Follow up assessment review with Mobility Engineer. Continue to work toward discharge plan of cares. Continue with teaching and supportive cares. Follow up with neurology MRI results pending.
[2023-10-09] MEDS: CARDIZEM CD 180 MG PO (08:58)
[2023-10-09] MEDS: TRANDATE 200 MG PO ×2 (09:05→19:40)
--- NOTE | 2023-10-09 11:39 | CM ---
regional retail sales manager reviewed patient's chart and met with patient and patient states that he lives with his spouse in a 2 story home, patient is independent with adl's and ambulation, no dme, patient drives, works.
Pharmacy: [facility]
PCP: Dr. Mtz
Plan; Home with spouse when stable.
[2023-10-09 12:02] LABS: Glucose - Point of Care 159 mg/dl (70-99)
--- NOTE | 2023-10-09 12:57 | PTCARENOTE ---
Hospitalist team in and out to see patient thru morning. Patient verbalizes plan of and now new tele orders.. Continue to reinforce events and I[facility] events of stay. Continue emotional support for patient secondary to events of day/patient family
events. VS trends ongoing. New medications via Emar and follow up with pharmacy. Continue to update and continue hourly rounds.
--- NOTE | 2023-10-09 13:58 | W.PN.NEURO.1 ---
Addendum entered and electronically signed by Nina Jensen, 10/09/23 14:07:
If echo is unremarkable, neurology will sign off and patient can be discharged.
Original Note:
Today's Communication / Plan
-
continue dapt, crestor 40
echo tomorrow
Neuro Assessment/Plan
Assessment
MALVIN ANN is a 52 year old M who has presented to the hospital with dysarthria and severe RUE weakness; HCT concerning for a L frontal lobe infarct developing; MRI brain confirmed this. Was within the window and received TNK. He has had
significant improvement in all symptoms.
Patient has the following risk factors for their symptoms:
carotid vascular disease
CVA
HTN
Hypercholesterolemia
IV Tenecteplase/IAT candidacy: received TNK; CTA results reviewed--age indeterminate occlusion/possible dissection although does not correlate with these symptoms
MRI brain:
Small nonhemorrhagic acute/subacute infarcts clustered in the high left frontoparietal lobe.
CTA head/neck: Right vertebral artery occlusion of the V3 and proximal V4 segments, and narrowing and irregularity of the distal V2 segment. Findings are considered suspicious for an age-indeterminate vertebral artery dissection. Very likely
chronic, does not correlate with current stroke; does report that he had a stroke years ago
Plan
Recommendations:
ok to be transferred out of the ICU
�goal blood pressure now normotension
no hemorrhage on MRI; reviewed results with patient, also reviewed CTA; start DAPT x 21 days, then d/c Plavix and continue ASA 81mg daily; was already on this
�LDL 109; HgbA1C is 7.0
�Maxed out Crestor dosing; was on 10mg BLOOD BANK LABORATORY TECHNICIAN
�goal blood glucose levels for patient would be less than 180 mg/dL
�Speech, PT, OT evaluations needed
�Physiatry consultation warranted
�DVT prophylaxis with sequential compression devices over next 24 hours, can be started on Enoxaparin subcutaneous for DVT prophylaxis beginning 24 hours after TNK provision.
�medical educational materials will be provided
�check an echocardiogram
Crttical care time 40 mins
Needs outpatient f/u with neurology--[place]ives [facility]; does not want to follow there; does see [place] [facility] neuro but the [facility] clinic
Subjective/Objective
Subjective Data
Date of Service: October 09, 2023
dysarthria continues to improve; some very mild subjective dysarthria remains
R hand weakness/dexterity also improved compared to yesterday
Objective Data
Vital Signs
Temp Pulse Resp BP Pulse Ox
98.3 F 81 20 152/91 97
10/09/23 11:15 10/09/23 11:53 10/09/23 11:53 10/09/23 11:53 10/09/23 11:52
Lab Results
10/09/23 04:02
10/09/23 04:02
PT 13.6 Sec (11.4-14.6) 10/08/23 04:01
INR 1.06 10/08/23 04:01
APTT 30.6 Sec (23.4-35.0) 10/08/23 04:01
Sodium 138 mmol/L (135-145) 10/09/23 04:02
Potassium 4.5 mmol/L (3.5-5.1) 10/09/23 04:02
BUN 20 mg/dl (9-20) 10/09/23 04:02
Glucose 121 mg/dl (70-99) H 10/09/23 04:02
Calcium 9.7 mg/dl (8.4-10.2) 10/09/23 04:02
Phosphorus 3.4 mg/dl (2.5-4.5) 10/08/23 04:01
LDL Cholesterol, Calc 109 mg/dl 10/08/23 04:01
Patient Allergies
latex Allergy (Verified 10/08/23 02:11)
Unknown
[2023-10-09] MEDS: ASPIR LOW (ENTERIC COATED) 81 MG PO (14:48)
[2023-10-09] MEDS: PLAVIX 75 MG PO (14:48)
--- NOTE | 2023-10-09 15:18 | PTCARENOTE ---
Neurology at bedside early this afternoon. Medications and follow up with pharmacy. Update via Emar. Continue follow up assessment changes, ,ongoing improvement continues. Vital signs ongoing. Update with patient and at bedside. Continue with
teaching and supportive cares.
[2023-10-09 16:37] LABS: Glucose - Point of Care 134 mg/dl (70-99)
[2023-10-09] MEDS: GLUCOPHAGE 500 MG PO (16:49)
--- NOTE | 2023-10-09 17:33 | PTCARENOTE ---
Update with family and at bedside. patient verbalize plan of care for tonight and tomorrow. Continue with ambulation, out of bed for dinner, ambulates room and hill with . Patient asking if can follow up with neurology here at [place]
instead of where he lives. Will follow with MD in morning in rounds. Assessment/NIH remains 1-2, continues with improvement in hand dexterity and sensation. Vital sign trends ongoing. Continue with teaching and supportive cares.
[2023-10-09] MEDS: CRESTOR 40 MG PO (18:52)
--- NOTE | 2023-10-09 20:00 | PTCARENOTE ---
Rec'd pt resting in bed, NIH-0, has slight dexterity issue with R hand per pt, MANINDER 3mm, SR, + pulses, skin warm/dry, RA, lungs clear, sat 97, + bowel sounds, abd soft, no n/v, voiding without difficulty
[2023-10-09 21:18] LABS: Glucose - Point of Care 137 mg/dl (70-99)
[2023-10-09] MEDS: LANTUS 0.3 UNITS SC (22:08)
--- NOTE | 2023-10-09 23:48 | PTCARENOTE ---
no change in neuro assessment
[2023-10-10] VITALS: BP 120/72
[2023-10-10 02:00] VITALS: BP 126/75
[2023-10-10 04:00] VITALS: BP 105/67
--- NOTE | 2023-10-10 04:04 | PTCARENOTE ---
report given to floor RN, transferred to rm [id number] via WC on monitor accomp by self
[2023-10-10 04:29] VITALS: BP 132/76
[2023-10-10 07:28] VITALS: BP 129/83
[2023-10-10 07:41] LABS: Glucose - Point of Care 144 mg/dl (70-99)
[2023-10-10] MEDS: ASPIR LOW (ENTERIC COATED) 81 MG PO (08:28)
[2023-10-10] MEDS: TRICOR 145 MG PO (08:28)
[2023-10-10] MEDS: PLAVIX 75 MG PO (08:28)
[2023-10-10] MEDS: TRANDATE 200 MG PO (08:28)
[2023-10-10] MEDS: CARDIZEM CD 180 MG PO (08:28)
[2023-10-10] MEDS: GLUCOPHAGE 500 MG PO (08:28)
[2023-10-10] MEDS: SINGULAIR 10 MG PO (08:28)
--- NOTE | 2023-10-10 10:38 | CM ---
Patient seen at bedside with physician. Patient for discharge home today. Patient requested copy of records and given form to complete. Patient for follow up with outpatient PT/OT and hard copy script placed on chart. Patient plan is for to
transport him home as he has been updated not to drive for approx 30 days until cleared by pt/ot or neurology. Patient with no other questions at this time. CM will continue to follow for discharge planning needs.
Plan; home with outpatient pt/ot, follow up with neurology
--- NOTE | 2023-10-10 10:39 | W.PN.HOSP.TC ---
Today's Communication/Plan
-
echo
d/c
Assessment / Plan
Assessment / Plan
pt is a 52 year old male
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
strokes in left frontal area--LDL 109 and statin started--getting ECHO--likely d/c today
type 2 DM--cont meds once reconciled-- add ISS low
Essential HTN-- Goal of permissive HTN initially--now BP control
Hypercholesterolemia- cont Rosuvastatin
DVT proph
code status --- FULL CODE
Anticipated Discharge: Today
Subjective/Interval History
-
Date of Service: October 10, 2023
pt ready for d/c--getting echo now
Objective Data
-
Labs:
Laboratory Results
10/10/23
06:00
WBC Pending
Hgb Pending
Hct Pending
Plt Count Pending
Sodium Pending
Potassium Pending
Chloride Pending
Carbon Dioxide Pending
BUN Pending
Creatinine Pending
Glucose Pending
Calcium Pending
Total Bilirubin Pending
AST Pending
ALT Pending
Alkaline Phosphatase Pending
Vital Signs:
max temp for 24 hours
10/09/23
23:10
Temp 98.4 F
Vital Signs
Temp Pulse Resp BP Pulse Ox
98.1 F 81 19 129/83 96
10/10/23 07:28 10/10/23 07:28 10/10/23 07:28 10/10/23 07:28 10/10/23 07:28
I&O
10/09/23 10/10/23 10/11/23
06:59 06:59 06:59
Intake Total 1200 / 1200 1190 / 1190
Output Total 1400 / 1400 600 / 600
Balance -200 / -200 590 / 590
Review of Systems
-
All other systems: Reviewed and negative
Physical Exam
-
General: Well Developed, Well Nourished and No Apparent Distress
HEENT: Normocephalic and Atraumatic
Respiratory: Clear to Auscultation; Negative Wheezes or Rhonchi
Cardiac: Regular Rhythm and S1/S2; Negative Murmur
GI: Soft, Nontender, Nondistended and Normal Bowel Sounds
Musculoskeletal: No Clubbing, No Cyanosis and No Edema
Neuro: Awake
[2023-10-10 11:41] VITALS: BP 147/82
[2023-10-10 11:42] LABS: Glucose - Point of Care 102 mg/dl (70-99)
--- NOTE | 2023-10-10 14:42 | W.DCSUMMARY ---
Discharge Summary
Discharge Data
Date of Admission: 10/08/23
Date of Discharge: 10/10/23
-
Pending Results: No
Hospital Course
Primary care physician : David Mtz in [place], [place]
Principal Discharge diagnosis : Acute left middle cerebral artery region stroke status post lytic therapy
Chronic Discharge diagnosis : Type 2 diabetes mellitus, essential hypertension, hyperlipidemia
Hospital Course : Patient was a 52-year-old male who has a history of previous stroke and bilateral carotid artery endarterectomy for carotid artery stenosis who went to bed feeling normal at 10:30 PM. At 12:45 AM he awoke with numbness in his
right face and noticed that his speech was slurred. Patient also was unable to move his right upper extremity. Emergency medical services was called and he was found to have a flaccid right upper extremity and dysarthria. Patient is in town for a
. He was brought in and evaluated for stroke. Patient had no contraindication to lytic therapy. That was given and pt was admitted to the intensive care unit.
Problem #1: Acute left middle cerebral artery region stroke status post lytic therapy. Patient was given lytic therapy and admitted to the intensive care unit. He was seen in consultation by neurology. Initial head CT done in the emergency
department showed possible developing infarct in left frontal lobe . At the 24-hour neftali, brain MRI was performed which showed small nonhemorrhagic acute to subacute infarcts in the high left frontal parietal lobe. Patient improved with minimal
residual findings after lytic therapy. He was seen in consultation by physical therapy, Occupational Therapy, speech therapy. It is recommended that he perform outpatient physical and Occupational Therapy. Prescription has been given to the
patient. In addition, head and neck angiogram was performed which showed no evidence for high-grade stenosis or occlusion of the [place]. 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
dissection. Neurology feels this is chronic as it does not correlate with his current stroke evident the patient reports that he had a stroke years ago. Echocardiogram was checked to complete his workup which was within normal limits. Lipid panel
was checked which showed total cholesterol of 201, LDL 109, triglycerides 281. Patient was started on rosuvastatin 40 mg daily. Patient should follow-up with neurology in 1 month.
Problem #2: All other medical issues. These include Type 2 diabetes mellitus, essential hypertension, hyperlipidemia. These medical issues were stable during his hospitalization. Medications were continued as able.
Patient is stable for discharge home at this time. He should not drive until he is cleared to do so. If there are any questions regarding this dictation or his hospital stay, please not hesitate to call. Our office number is [phone].
Time for discharge 33 minutes.
Important imaging findings :
BRAIN MRI IMPRESSION:
Small nonhemorrhagic acute/subacute infarcts clustered in the high left frontoparietal lobe.
HEAD AND NECK CTA IMPRESSION:
1. No CTA evidence for high-grade stenosis or occlusion of the [place] or bilateral carotid arterial systems.
2. 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 Findings are considered suspicious for an age-indeterminate vertebral artery dissection.
Discharge Plan
-
Patient Disposition: Home (Routine Discharge)
Discharge Diagnosis/Procedures: Acute left middle cerebral artery region stroke status post lytic therapy with improvement, type 2 diabetes mellitus, essential hypertension, hyperlipidemia
Condition: Good
Diet: Diabetic, Carb Controlled
Activity: As tolerated
Driving Restrictions: not until cleared to do so
Bathing Restrictions: None
Other Services: PT and OT
Referrals:
UNKNOWN - PT NOT,INTERVIEWE [Family Provider] - in less than 1 week
Prescriptions:
New
clopidogrel 75 mg Tablet
75 mg PO DAILY Qty: 21 0RF
Rx Instructions:
take with aspirin for 21 days then stop
rosuvastatin 40 mg Tablet
40 mg PO QPM Qty: 30 0RF
Continued
aspirin 81 mg Tablet,Delayed Release (Dr/Ec)
81 mg PO DAILY
metformin 500 mg tablet
500 mg PO BID
labetalol 200 mg tablet
200 mg PO BID
diltiazem HCl 180 mg capsule,extended release 24hr
180 mg PO DAILY
montelukast 10 mg tablet
10 mg PO DAILY
fenofibrate 160 mg tablet
160 mg PO DAILY
insulin glargine [Lantus Solostar U-100 Insulin] 100 unit/mL (3 mL) insulin pen
30 unit SC HS
icosapent ethyl 1 gram capsule
2 g PO BID
Mounjaro 12.5 mg/0.5 mL pen injector
12.5 mg SC WEEKLY
Held
Fish Oil
Hold Instructions: discuss restarting with your doctor
Discontinued
rosuvastatin 10 mg tablet
10 mg PO DAILY
Discharge Orders:
Discharge Patient (As Directed); Ordered 10/10/23
Ordered By: Amanda Grover
Discharge Date and Time
Discharge Date/Time: 10/10/23 13:33
Print Language: NAMIBIAN
== END 2023-10-10 13:33 | disposition home or self-care (01) | DRG 63 ==
LOC: 4 WEST ACU 03:01
PROVIDERS: Nurse Practitioner Primary Care; ADMITTING PHYSICIAN Internal Medicine; ATTENDING PHYSICIAN Internal Medicine; CONSULT PHYSICIAN Psychiatry & Neurology Neurology; EMERGENCY PHYSICIAN Emergency Medicine
PROC: 3E04317 Introduction of Other Thrombolytic into Central Vein, Percutaneous Approach (ICD-10-PCS; 2023-10-08)
DX: I63.512 Cerebral infarction due to unspecified occlusion or stenosis of left middle cerebral artery (principal); G83.21 Monoplegia of upper limb affecting right dominant side; E11.9 Type 2 diabetes mellitus without complications; I10 Essential (primary) hypertension; E66.9 Obesity, unspecified; Z68.31 Body mass index [BMI] 31.0-31.9, adult; I65.01 Occlusion and stenosis of right vertebral artery; R29.706 NIHSS score 6; R47.1 Dysarthria and anarthria; E78.00 Pure hypercholesterolemia, unspecified; Z79.4 Long term (current) use of insulin; Z79.82 Long term (current) use of aspirin; Z79.84 Long term (current) use of oral hypoglycemic drugs; Z79.899 Other long term (current) drug therapy; Z86.73 Personal history of transient ischemic attack (TIA), and cerebral infarction without residual deficits; Z86.79 Personal history of other diseases of the circulatory system; Z82.49 Family history of ischemic heart disease and other diseases of the circulatory system
CPT/HCPCS: 70450; 70496; 70498; 70551; 71045; 80053; 80061; 82962; 83036; 83735; 84100; 84484; 85025; 85027; 85610; 85730; 92610; 93005; 93306; 96374; 97116; 97163; 97166; 99291; J3101; Q9967